=== PATIENT | male | born 1955 | race Caucasian/White ===

== ENCOUNTER → 2022-05-13 | Outpatient (CLI) | payer MEDICARE, BC ==
[~2022-05-13] VITALS: Ht 172.7 cm; Wt 67.4 kg
[~2022-05-13] MED LIST: FLOMAX 0.40.4 MG/CAP PO; NORCO 325 MG-101 TAB PO
[2022-05-13 13:10] VITALS: BP 112/63; PULSE 72; TEMP 97.8
[2022-05-13 14:05] VITALS: BP 110/66; PULSE 72
== END ==
LOC: COL.RAD 12:25
DX: M48.02 Spinal stenosis, cervical region (principal)
CPT/HCPCS: J1100